=== PATIENT | male | born 1950 | race Caucasian/White ===

== ENCOUNTER 2018-11-28 23:31 | Inpatient (IN) | payer MEDICARE, MEDICAID ==
[~2018-11-28] VITALS: Ht 165.1 cm; Wt 63.5 kg
[2018-11-29] MEDS ORDERED: ACETAMINOPHEN 500MG TABLET PO ONE (00:15)
[2018-11-29 02:35] LABS: BASOPHILS % 0.2 % (0.0-2.0); EOSINOPHILS % 3.8 % (0.0-5.0); HEMATOCRIT. 26.7 % (42.0-52.0); HEMOGLOBIN. 9.1 g/dL (14.0-18.0); LYMPHOCYTES % 8.5 % (20.0-50.0); MEAN PLATELET VOLUME 6.6 fl (7.4-10.4); MONOCYTES % 6.7 % (2.0-8.0); NEUTROPHILS % 80.8 % (40.0-76.0); PLATELET 280 x1000/uL (130-400); RED BLOOD CELL COUNT 3.04 mill/uL (4.7-6.1)
[2018-11-29 02:39] LABS: CHLORIDE 95 mEq/L (98-107)
[2018-11-29 02:52] LABS: PROTHROMBIN TIME 10.6 sec (9.6-11.0)
[2018-11-29] MEDS ORDERED: ONDANSETRON HCL 4MG/2ML INJ IV PRN (03:15)
[2018-11-29] MEDS ORDERED: CLONIDINE 0.1MG TABLET PO PRN (03:15)
[2018-11-29] MEDS ORDERED: LORAZEPAM 2MG/ML CPJ IV PRN (03:15)
[2018-11-29] MEDS ORDERED: DOCUSATE SODIUM 100MG CAPSULE PO PRN (03:15)
[2018-11-29] MEDS ORDERED: MAGNESIUM/ALUMINUM HYDROXIDE/SIMETHICONE 30ML UDC PO PRN (03:15)
[2018-11-29] MEDS ORDERED: ENOXAPARIN 40MG/0.4ML SYR SUBCUT SCH (08:00)
[2018-11-29] MEDS ORDERED: DEXT 5%/0.45% NACL 1000ML 1,000 ML IV SCH (08:00)
[2018-11-29 12:00] VITALS: BP 116/46
[2018-11-29] MEDS ORDERED: NA PHOS,M-B/NA PHOS,DI-BA ENEMA 118ML PR PRN (12:00)
[2018-11-29 12:51] LABS: T4 FREE 0.86 ng/dL (0.76-1.46)
[2018-11-29 13:26] VITALS: BP 106/53
[2018-11-29 16:00] VITALS: BP 123/49
[2018-11-29] MEDS ORDERED: KCL 20MEQ/100ML PREMIX 100 ML IV SCH (16:00)
[2018-11-29 19:36] LABS: *AMPHETAMINES SCREEN URINE NEGATIVE (NEGATIVE); *BARBITURATES SCREEN URINE NEGATIVE (NEGATIVE); *BENZODIAZEPINES SCREEN URINE NEGATIVE (NEGATIVE)
[2018-11-29 19:37] LABS: *COCAINE SCREEN URINE NEGATIVE (NEGATIVE); CANNABINOID URINE SCREEN NEGATIVE (NEGATIVE); METHADONE URINE SCREEN NEGATIVE (NEGATIVE); OPIATES URINE SCREEN NEGATIVE (NEGATIVE); PHENCYCLIDINE URINE SCREEN NEGATIVE (NEGATIVE)
[2018-11-29 20:00] VITALS: BP 94/60
[2018-11-29 20:23] LABS: CREATINE KINASE MB FRACTION 4.7 ng/mL (0.5-3.6)
[2018-11-29 20:31] LABS: VITAMIN B12 SERUM 350 pg/mL (211-911)
[2018-11-29] MEDS: LACTULOSE 20G/30ML UDC PO SCH (21:47)
[2018-11-30] VITALS (77 sets, daily range): BP systolic 56–146; BP diastolic 27–92
[2018-11-30] MEDS ORDERED: MANNITOL 20% (20GM/100ML) BAG 500ML PREMIX IV SCH (01:30)
[2018-11-30] MEDS: DEXT 5%/LACTATED RINGERS 1,000 ML IV SCH ×2 (01:59→22:01)
[2018-11-30] MEDS ORDERED: NICARDIPINE 100 MG in SODIUM CHLORIDE 0.9% 60 ML IV PRN (02:00)
[2018-11-30] MEDS: LEVETIRACETAM 500 MG in SODIUM CHLORIDE 0.9% 100 ML IV SCH ×3 (02:08→18:16)
[2018-11-30 05:50] LABS: BASOPHILS % 0.3 % (0.0-2.0); HEMOGLOBIN. 9.3 g/dL (14.0-18.0); LYMPHOCYTES % 7.3 % (20.0-50.0); MEAN CORPUSCULAR HEMOGLOBIN 30.2 pg (28.0-32.0); MEAN PLATELET VOLUME 7.4 fl (7.4-10.4); MONOCYTES % 6.7 % (2.0-8.0); NEUTROPHILS % 80.7 % (40.0-76.0); PLATELET 274 x1000/uL (130-400); RED BLOOD CELL COUNT 3.07 mill/uL (4.7-6.1); RED CELL DISTRIBUTION WIDTH 15.5 % (11.6-14.6)
[2018-11-30 05:55] LABS: CHLORIDE 98 mEq/L (98-107)
[2018-11-30 06:08] LABS: CREATINE KINASE 139 IU/L (39-308); HDL CHOLESTEROL 43 mg/dL (40-59)
[2018-11-30 06:10] LABS: LDL CHOLESTEROL 70 mg/dL (5-100)
[2018-11-30] MEDS: LACTULOSE 20G/30ML UDC PO SCH (09:00)
[2018-11-30] MEDS ORDERED: DOBUTAMINE 250MG PREMIX 250 ML IV SCH (10:15)
[2018-11-30] MEDS ORDERED: MAGNESIUM 1 G PREMIX 100 ML IV NR (10:15)
[2018-11-30] MEDS: HYDROMORPHONE HCL/PF 2MG/ML CPJ IV PRN (11:01)
[2018-11-30] MEDS ORDERED: DOBUTAMINE 250MG PREMIX 250 ML IV PRN (11:12)
[2018-11-30] MEDS: HYDROCODONE/ACETAMINOPHEN 5/325MG TABLET PO PRN (15:02)
[2018-12-01] VITALS (77 sets, daily range): BP systolic 91–149; BP diastolic 33–97
[2018-12-01] MEDS: LEVETIRACETAM 500 MG in SODIUM CHLORIDE 0.9% 100 ML IV SCH ×3 (01:33→18:07)
[2018-12-01] MEDS: HYDROMORPHONE HCL/PF 2MG/ML CPJ IV PRN (01:46)
[2018-12-01 05:59] LABS: BASOPHILS % 0.4 % (0.0-2.0); EOSINOPHILS % 5.5 % (0.0-5.0); HEMATOCRIT. 28.7 % (42.0-52.0); HEMOGLOBIN. 9.8 g/dL (14.0-18.0); LYMPHOCYTES % 8.2 % (20.0-50.0); MEAN CORPUSCULAR HEMOGLOBIN 30.1 pg (28.0-32.0); MEAN CORPUSCULAR VOLUME 88.4 fL (80.0-94.0); MEAN PLATELET VOLUME 7.2 fl (7.4-10.4); MONOCYTES % 8.8 % (2.0-8.0); NEUTROPHILS % 77.1 % (40.0-76.0); PLATELET 319 x1000/uL (130-400); RED BLOOD CELL COUNT 3.25 mill/uL (4.7-6.1); RED CELL DISTRIBUTION WIDTH 15.3 % (11.6-14.6)
[2018-12-01 06:13] LABS: CHLORIDE 102 mEq/L (98-107)
[2018-12-01] MEDS ORDERED: POVIDONE-IODINE OINT 28.4GM TOP ONE (08:06)
[2018-12-01] MEDS ORDERED: BACITRACIN 15GM TUBE TOP ONE (08:07)
[2018-12-01] MEDS ORDERED: THROMBIN (BOVINE) 5000 UNITS/VIAL TOP ONE ×4 (08:07→08:52)
[2018-12-01] MEDS ORDERED: LIDOCAINE HCL/EPINEPHRINE 1%-EPI 1:100,000 20 ML VIAL ONE ×2 (08:08→08:52)
[2018-12-01] MEDS ORDERED: BACITRACIN 50,000 UNITS/VIAL ONE ×2 (08:08→08:52)
[2018-12-01] MEDS ORDERED: NORMAL SALINE 0.9% 10 ML SYR ONE (08:51)
[2018-12-01] MEDS ORDERED: LACTATED RINGERS 3,000 ML IV ONE (08:52)
[2018-12-01] MEDS: LACTULOSE 20G/30ML UDC PO SCH (09:00)
[2018-12-01] MEDS ORDERED: FENTANYL CITRATE/PF 50MCG/ML 2ML VIAL ONE (09:22)
[2018-12-01] MEDS ORDERED: ROCURONIUM BROMIDE 10MG/ML VIAL 5ML IV ONE (09:23)
[2018-12-01] MEDS ORDERED: PROPOFOL 200MG/20ML VIAL IV ONE (09:23)
[2018-12-01] MEDS ORDERED: GLYCOPYRROLATE 0.2 MG/ML 2ML VIAL ONE ×2 (10:46→11:35)
[2018-12-01] MEDS ORDERED: CLINDAMYCIN 600 MG in DEXTROSE 5% WATER 50 ML IV SCH (11:00)
[2018-12-01] MEDS ORDERED: SODIUM CHLORIDE 0.9% 10ML VIAL ONE (11:05)
[2018-12-01] MEDS ORDERED: EPHEDRINE SULFATE 50MG/ML VIAL ONE (11:05)
[2018-12-01] MEDS ORDERED: NITROGLYCERIN 50MG PREMIX 0 ML IV ONE (11:13)
[2018-12-01] MEDS ORDERED: NEOSTIGMINE METHYLSULFATE 1MG/ML 10 ML VIAL ONE (11:35)
[2018-12-01] MEDS: CLINDAMYCIN 600MG PREMIX 50 ML IV SCH ×2 (14:57→21:34)
[2018-12-01] MEDS: MORPHINE SULFATE 4 MG/ML CPJ (NOT FOR IM USE) IV PRN ×2 (16:02→19:47)
[2018-12-01] MEDS ORDERED: IPRATROPIUM/ALBUTEROL 0.5-3(2.5)MG/3ML NEB HHN SCH (16:30)
[2018-12-01] MEDS: ACETYLCYSTEINE 100MG/ML 10% VIAL 4ML INH SCH (17:17)
[2018-12-01] MEDS: IPRATROPIUM/ALBUTEROL 0.5-3(2.5)MG/3ML NEB HHN SCH ×2 (17:17→20:03)
[2018-12-01] MEDS: DEXT 5%/LACTATED RINGERS 1,000 ML IV SCH (18:07)
[2018-12-02] VITALS (47 sets, daily range): BP systolic 81–167; BP diastolic 28–105
[2018-12-02] MEDS: MORPHINE SULFATE 4 MG/ML CPJ (NOT FOR IM USE) IV PRN ×3 (00:06→17:40)
[2018-12-02] MEDS: ACETYLCYSTEINE 100MG/ML 10% VIAL 4ML INH SCH ×2 (00:09→08:25)
[2018-12-02] MEDS: IPRATROPIUM/ALBUTEROL 0.5-3(2.5)MG/3ML NEB HHN SCH ×5 (00:09→21:12)
[2018-12-02] MEDS: LEVETIRACETAM 500 MG in SODIUM CHLORIDE 0.9% 100 ML IV SCH ×3 (01:52→18:34)
[2018-12-02 05:29] LABS: BASOPHILS % 0.2 % (0.0-2.0); CHLORIDE 100 mEq/L (98-107); EOSINOPHILS % 6.2 % (0.0-5.0); HEMATOCRIT. 29.1 % (42.0-52.0); HEMOGLOBIN. 9.6 g/dL (14.0-18.0); LYMPHOCYTES % 10.1 % (20.0-50.0); MEAN CORPUSCULAR HEMOGLOBIN 29.3 pg (28.0-32.0); MEAN CORPUSCULAR VOLUME 88.6 fL (80.0-94.0); MEAN PLATELET VOLUME 7.1 fl (7.4-10.4); NEUTROPHILS % 75.5 % (40.0-76.0); PLATELET 317 x1000/uL (130-400); RED BLOOD CELL COUNT 3.28 mill/uL (4.7-6.1); RED CELL DISTRIBUTION WIDTH 15.7 % (11.6-14.6)
[2018-12-02] MEDS: CLINDAMYCIN 600MG PREMIX 50 ML IV SCH ×2 (05:46→15:02)
[2018-12-02] MEDS: LACTULOSE 20G/30ML UDC PO SCH (09:00)
[2018-12-02] MEDS: DEXT 5%/LACTATED RINGERS 1,000 ML IV SCH (15:03)
[2018-12-03] VITALS (74 sets, daily range): BP systolic 82–150; BP diastolic 42–109
[2018-12-03] MEDS: ACETYLCYSTEINE 100MG/ML 10% VIAL 4ML INH SCH ×4 (00:06→14:00)
[2018-12-03] MEDS: IPRATROPIUM/ALBUTEROL 0.5-3(2.5)MG/3ML NEB HHN SCH ×7 (00:22→20:53)
[2018-12-03] MEDS: LEVETIRACETAM 500 MG in SODIUM CHLORIDE 0.9% 100 ML IV SCH ×3 (01:01→18:47)
[2018-12-03 05:35] LABS: BASOPHILS % 0.1 % (0.0-2.0); EOSINOPHILS % 4.9 % (0.0-5.0); HEMATOCRIT. 29.7 % (42.0-52.0); HEMOGLOBIN. 10.1 g/dL (14.0-18.0); LYMPHOCYTES % 7.3 % (20.0-50.0); MEAN CORPUSCULAR VOLUME 87.8 fL (80.0-94.0); MONOCYTES % 8.9 % (2.0-8.0); NEUTROPHILS % 78.8 % (40.0-76.0); PLATELET 367 x1000/uL (130-400); RED BLOOD CELL COUNT 3.38 mill/uL (4.7-6.1); RED CELL DISTRIBUTION WIDTH 15.1 % (11.6-14.6)
[2018-12-03 05:52] LABS: CHLORIDE 96 mEq/L (98-107)
[2018-12-03] MEDS: MORPHINE SULFATE 4 MG/ML CPJ (NOT FOR IM USE) IV PRN ×2 (08:34→20:50)
[2018-12-03] MEDS: LACTULOSE 20G/30ML UDC PO SCH (08:35)
[2018-12-03] MEDS: DEXT 5%/LACTATED RINGERS 1,000 ML IV SCH (09:58)
[2018-12-04] VITALS (37 sets, daily range): BP systolic 84–155; BP diastolic 31–95
[2018-12-04] MEDS: IPRATROPIUM/ALBUTEROL 0.5-3(2.5)MG/3ML NEB HHN SCH ×6 (00:06→20:16)
[2018-12-04] MEDS: ACETYLCYSTEINE 100MG/ML 10% VIAL 4ML INH SCH ×2 (00:06→07:53)
[2018-12-04] MEDS: LEVETIRACETAM 500 MG in SODIUM CHLORIDE 0.9% 100 ML IV SCH ×3 (01:05→17:41)
[2018-12-04] MEDS: HYDROCODONE/ACETAMINOPHEN 5/325MG TABLET PO PRN (01:41)
[2018-12-04 05:35] LABS: BASOPHILS % 0.2 % (0.0-2.0); EOSINOPHILS % 3.8 % (0.0-5.0); HEMATOCRIT. 30.2 % (42.0-52.0); HEMOGLOBIN. 10.1 g/dL (14.0-18.0); LYMPHOCYTES % 9.8 % (20.0-50.0); MEAN CORPUSCULAR HEMOGLOBIN 29.6 pg (28.0-32.0); MEAN CORPUSCULAR VOLUME 88.3 fL (80.0-94.0); MEAN PLATELET VOLUME 7.2 fl (7.4-10.4); MONOCYTES % 11.6 % (2.0-8.0); NEUTROPHILS % 74.6 % (40.0-76.0); PLATELET 394 x1000/uL (130-400); RED BLOOD CELL COUNT 3.42 mill/uL (4.7-6.1); RED CELL DISTRIBUTION WIDTH 15.2 % (11.6-14.6)
[2018-12-04] MEDS: DEXT 5%/LACTATED RINGERS 1,000 ML IV SCH (05:56)
[2018-12-04 06:11] LABS: CHLORIDE 95 mEq/L (98-107)
[2018-12-04] MEDS: LACTULOSE 20G/30ML UDC PO SCH (09:00)
[2018-12-04] MEDS ORDERED: DEXTROSE 50% WATER 50ML SYRINGE IV PRN (09:45)
[2018-12-04] MEDS: BLOOD SUGAR DIAGNOSTIC STRIP TEST SCH ×3 (11:30→21:00)
[2018-12-04] MEDS: INSULIN LISPRO 100 UNITS/ML SUBCUT SCH ×3 (12:00→21:00)
[2018-12-04] MEDS: HYDROCODONE/APAP 7.5/325MG 1 TAB TABLET PO PRN (15:14)
[2018-12-05] VITALS (17 sets, daily range): BP systolic 84–152; BP diastolic 39–85
[2018-12-05] MEDS: IPRATROPIUM/ALBUTEROL 0.5-3(2.5)MG/3ML NEB HHN SCH ×7 (00:09→22:25)
[2018-12-05] MEDS: LEVETIRACETAM 500 MG in SODIUM CHLORIDE 0.9% 100 ML IV SCH ×3 (03:21→17:05)
[2018-12-05] MEDS: HYDROCODONE/APAP 7.5/325MG 1 TAB TABLET PO PRN ×2 (03:24→14:03)
[2018-12-05] MEDS: BLOOD SUGAR DIAGNOSTIC STRIP TEST SCH ×4 (06:30→21:33)
[2018-12-05] MEDS: INSULIN LISPRO 100 UNITS/ML SUBCUT SCH ×4 (07:00→21:00)
[2018-12-05] MEDS: ACETYLCYSTEINE 100MG/ML 10% VIAL 4ML INH SCH ×2 (07:47→14:31)
[2018-12-05] MEDS: LACTULOSE 20G/30ML UDC PO SCH (09:00)
[2018-12-05] MEDS: DEXT 5%/LACTATED RINGERS 1,000 ML IV SCH (09:40)
[2018-12-05] MEDS: MORPHINE SULFATE 4 MG/ML CPJ (NOT FOR IM USE) IV PRN (17:06)
[2018-12-06] VITALS (7 sets, daily range): BP systolic 90–123; BP diastolic 52–64
[2018-12-06] MEDS: LEVETIRACETAM 500 MG in SODIUM CHLORIDE 0.9% 100 ML IV SCH ×3 (01:09→20:12)
[2018-12-06] MEDS: HYDROCODONE/APAP 7.5/325MG 1 TAB TABLET PO PRN (01:16)
[2018-12-06] MEDS: BLOOD SUGAR DIAGNOSTIC STRIP TEST SCH ×4 (07:36→21:00)
[2018-12-06] MEDS: INSULIN LISPRO 100 UNITS/ML SUBCUT SCH ×4 (07:50→21:28)
[2018-12-06] MEDS: IPRATROPIUM/ALBUTEROL 0.5-3(2.5)MG/3ML NEB HHN SCH ×3 (08:31→17:19)
[2018-12-06] MEDS: ACETYLCYSTEINE 100MG/ML 10% VIAL 4ML INH SCH ×2 (08:31→17:19)
[2018-12-06] MEDS: LACTULOSE 20G/30ML UDC PO SCH (09:00)
[2018-12-06] MEDS ORDERED: BACITRACIN 15GM TUBE TOP ONE (09:55)
[2018-12-06] MEDS ORDERED: BACITRACIN 50,000 UNITS/VIAL ONE (09:56)
[2018-12-06] MEDS ORDERED: VANCOMYCIN HCL 500 MG/VIAL ONE (09:56)
[2018-12-06] MEDS ORDERED: MIDAZOLAM HCL 2 MG/2 ML VIAL ONE (10:42)
[2018-12-06] MEDS ORDERED: FENTANYL CITRATE/PF 50MCG/ML 2ML VIAL ONE (10:42)
[2018-12-06] MEDS ORDERED: ROCURONIUM BROMIDE 10MG/ML VIAL 5ML IV ONE (10:43)
[2018-12-06] MEDS ORDERED: LIDOCAINE HCL 1% 20ML VIAL (Pyxis) INJ ONE (10:43)
[2018-12-06] MEDS ORDERED: PROPOFOL 200MG/20ML VIAL IV ONE (10:43)
[2018-12-06] MEDS ORDERED: PHENYLEPHRINE HCL 10 MG/ML 1ML (IV VIAL) IV ONE (10:48)
[2018-12-06] MEDS ORDERED: EPHEDRINE SULFATE 50MG/ML VIAL ONE (10:48)
[2018-12-06] MEDS ORDERED: SODIUM CHLORIDE 0.9% 10ML VIAL ONE (10:51)
[2018-12-06] MEDS ORDERED: GLYCOPYRROLATE 0.2 MG/ML 2ML VIAL ONE ×2 (11:44→12:49)
[2018-12-06] MEDS ORDERED: LEVOFLOXACIN 500MG PREMIX 100 ML IV ONE (11:59)
[2018-12-06] MEDS ORDERED: DEXAMETHASONE 4MG/ML 1ML VIAL ONE (12:13)
[2018-12-06] MEDS ORDERED: NEOSTIGMINE METHYLSULFATE 1MG/ML 10 ML VIAL ONE (12:49)
[2018-12-06] MEDS: HYDROMORPHONE HCL/PF 2MG/ML CPJ IV PRN ×2 (13:40→13:56)
[2018-12-06] MEDS: CLINDAMYCIN 600 MG in DEXTROSE 5% WATER 50 ML IV SCH (16:10)
[2018-12-07 00:05] VITALS: BP 105/57
[2018-12-07] MEDS: CLINDAMYCIN 600 MG in DEXTROSE 5% WATER 50 ML IV SCH (00:32)
[2018-12-07] MEDS: LEVETIRACETAM 500 MG in SODIUM CHLORIDE 0.9% 100 ML IV SCH ×3 (03:03→18:33)
[2018-12-07 04:00] VITALS: BP 114/67
[2018-12-07 06:11] LABS: HEMATOCRIT. 25.4 % (42.0-52.0); HEMOGLOBIN. 8.7 g/dL (14.0-18.0); MEAN CORPUSCULAR HEMOGLOBIN 29.5 pg (28.0-32.0); MEAN CORPUSCULAR VOLUME 86.6 fL (80.0-94.0); MEAN PLATELET VOLUME 7.1 fl (7.4-10.4); PLATELET 441 x1000/uL (130-400); RED BLOOD CELL COUNT 2.94 mill/uL (4.7-6.1); RED CELL DISTRIBUTION WIDTH 14.7 % (11.6-14.6)
[2018-12-07] MEDS: BLOOD SUGAR DIAGNOSTIC STRIP TEST SCH ×4 (06:23→20:32)
[2018-12-07] MEDS: INSULIN LISPRO 100 UNITS/ML SUBCUT SCH ×4 (06:23→20:32)
[2018-12-07 07:37] LABS: CHLORIDE 90 mEq/L (98-107)
[2018-12-07 08:00] VITALS: BP 110/59
[2018-12-07] MEDS: LACTULOSE 20G/30ML UDC PO SCH (09:39)
[2018-12-07] MEDS: DEXT 5%/LACTATED RINGERS 1,000 ML IV SCH (09:40)
[2018-12-07] MEDS: HYDROCODONE/APAP 7.5/325MG 1 TAB TABLET PO PRN (09:41)
[2018-12-07] MEDS: IPRATROPIUM/ALBUTEROL 0.5-3(2.5)MG/3ML NEB HHN SCH ×4 (10:05→20:20)
[2018-12-07 11:47] LABS: PLATELET ESTIMATE SLIGHTLY INCREASED
[2018-12-07 12:00] VITALS: BP 120/55
[2018-12-07] MEDS: ENOXAPARIN 40MG/0.4ML SYR SUBCUT SCH (12:23)
[2018-12-07 16:00] VITALS: BP 99/58
[2018-12-07 19:39] VITALS: BP 94/51
[2018-12-08] VITALS (8 sets, daily range): BP systolic 88–118; BP diastolic 40–66
[2018-12-08] MEDS: IPRATROPIUM/ALBUTEROL 0.5-3(2.5)MG/3ML NEB HHN SCH ×6 (00:29→21:33)
[2018-12-08] MEDS: ACETAMINOPHEN 325MG TABLET PO PRN ×3 (00:55→17:06)
[2018-12-08] MEDS: LEVETIRACETAM 500 MG in SODIUM CHLORIDE 0.9% 100 ML IV SCH ×3 (05:23→18:41)
[2018-12-08 06:35] LABS: BASOPHILS % 0.2 % (0.0-2.0); EOSINOPHILS % 1.5 % (0.0-5.0); HEMATOCRIT. 26.6 % (42.0-52.0); HEMOGLOBIN. 8.9 g/dL (14.0-18.0); LYMPHOCYTES % 11.5 % (20.0-50.0); MEAN CORPUSCULAR HEMOGLOBIN 29.3 pg (28.0-32.0); MEAN CORPUSCULAR VOLUME 87.2 fL (80.0-94.0); MEAN PLATELET VOLUME 7.2 fl (7.4-10.4); MONOCYTES % 10.7 % (2.0-8.0); NEUTROPHILS % 76.1 % (40.0-76.0); PLATELET 462 x1000/uL (130-400); RED BLOOD CELL COUNT 3.05 mill/uL (4.7-6.1)
[2018-12-08] MEDS: BLOOD SUGAR DIAGNOSTIC STRIP TEST SCH ×4 (06:47→21:27)
[2018-12-08] MEDS: INSULIN LISPRO 100 UNITS/ML SUBCUT SCH ×4 (06:47→21:00)
[2018-12-08 07:24] LABS: CHLORIDE 94 mEq/L (98-107)
[2018-12-08] MEDS: LACTULOSE 20G/30ML UDC PO SCH (10:24)
[2018-12-08] MEDS: HYDROCODONE/APAP 7.5/325MG 1 TAB TABLET PO PRN ×2 (10:25→21:28)
[2018-12-08] MEDS: ENOXAPARIN 40MG/0.4ML SYR SUBCUT SCH (12:00)
[2018-12-08] MEDS ORDERED: POTASSIUM CHLORIDE 20MEQ/PACKET PO NR (15:30)
[2018-12-08] MEDS: DEXT 5%/LACTATED RINGERS 1,000 ML IV SCH (21:27)
[2018-12-09] VITALS (7 sets, daily range): BP systolic 90–149; BP diastolic 46–72
[2018-12-09] MEDS: IPRATROPIUM/ALBUTEROL 0.5-3(2.5)MG/3ML NEB HHN SCH ×6 (00:53→21:13)
[2018-12-09] MEDS: LEVETIRACETAM 500 MG in SODIUM CHLORIDE 0.9% 100 ML IV SCH ×3 (04:10→17:38)
[2018-12-09] MEDS: DEXT 5%/LACTATED RINGERS 1,000 ML IV SCH ×3 (06:18→09:13)
[2018-12-09 06:38] LABS: BASOPHILS % 0.4 % (0.0-2.0); EOSINOPHILS % 4.5 % (0.0-5.0); HEMATOCRIT. 24.2 % (42.0-52.0); HEMOGLOBIN. 8.2 g/dL (14.0-18.0); LYMPHOCYTES % 12.9 % (20.0-50.0); MEAN CORPUSCULAR HEMOGLOBIN 29.4 pg (28.0-32.0); MEAN CORPUSCULAR VOLUME 86.8 fL (80.0-94.0); MEAN PLATELET VOLUME 6.9 fl (7.4-10.4); MONOCYTES % 12.2 % (2.0-8.0); PLATELET 452 x1000/uL (130-400); RED BLOOD CELL COUNT 2.79 mill/uL (4.7-6.1)
[2018-12-09 06:43] LABS: CHLORIDE 99 mEq/L (98-107)
[2018-12-09] MEDS: INSULIN LISPRO 100 UNITS/ML SUBCUT SCH ×4 (06:48→21:00)
[2018-12-09] MEDS: BLOOD SUGAR DIAGNOSTIC STRIP TEST SCH ×4 (06:48→21:00)
[2018-12-09] MEDS: LACTULOSE 20G/30ML UDC PO SCH (09:11)
[2018-12-09] MEDS: LEVOFLOXACIN 250MG TABLET PO SCH (11:07)
[2018-12-09] MEDS: ENOXAPARIN 40MG/0.4ML SYR SUBCUT SCH (12:22)
[2018-12-10] VITALS: BP 123/56
[2018-12-10] MEDS: IPRATROPIUM/ALBUTEROL 0.5-3(2.5)MG/3ML NEB HHN SCH ×6 (00:55→21:32)
[2018-12-10 04:00] VITALS: BP 124/56
[2018-12-10] MEDS: INSULIN LISPRO 100 UNITS/ML SUBCUT SCH ×4 (07:01→21:00)
[2018-12-10] MEDS: BLOOD SUGAR DIAGNOSTIC STRIP TEST SCH ×4 (07:01→21:00)
[2018-12-10] MEDS: LEVETIRACETAM 500 MG in SODIUM CHLORIDE 0.9% 100 ML IV SCH ×3 (07:01→18:00)
[2018-12-10 08:00] VITALS: BP 108/54
[2018-12-10] MEDS: LACTULOSE 20G/30ML UDC PO SCH (08:37)
[2018-12-10 12:00] VITALS: BP 125/68
[2018-12-10] MEDS: ENOXAPARIN 40MG/0.4ML SYR SUBCUT SCH (12:48)
[2018-12-10] MEDS: LEVOFLOXACIN 250MG TABLET PO SCH (12:48)
[2018-12-10] MEDS: HYDROCODONE/APAP 7.5/325MG 1 TAB TABLET PO PRN (12:55)
[2018-12-10 16:00] VITALS: BP 112/56
[2018-12-10 17:54] LABS: TOTAL IRON BINDING CAPACITY 204 ug/dL (250-450)
[2018-12-10 18:12] LABS: FERRITIN 413 ng/mL (22-322)
[2018-12-10 18:20] LABS: VITAMIN B12 SERUM 406 pg/mL (211-911)
[2018-12-10 20:07] VITALS: BP 115/70
[2018-12-11] VITALS (7 sets, daily range): BP systolic 90–127; BP diastolic 49–75
[2018-12-11] MEDS: IPRATROPIUM/ALBUTEROL 0.5-3(2.5)MG/3ML NEB HHN SCH ×6 (01:14→20:08)
[2018-12-11] MEDS: DEXT 5%/LACTATED RINGERS 1,000 ML IV SCH (01:58)
[2018-12-11] MEDS: LEVETIRACETAM 500 MG in SODIUM CHLORIDE 0.9% 100 ML IV SCH ×3 (01:58→18:02)
[2018-12-11 05:47] LABS: BASOPHILS % 0.2 % (0.0-2.0); EOSINOPHILS % 7.4 % (0.0-5.0); HEMATOCRIT. 23.3 % (42.0-52.0); HEMOGLOBIN. 7.9 g/dL (14.0-18.0); LYMPHOCYTES % 11.7 % (20.0-50.0); MEAN CORPUSCULAR HEMOGLOBIN 29.4 pg (28.0-32.0); MEAN CORPUSCULAR VOLUME 85.9 fL (80.0-94.0); MEAN PLATELET VOLUME 6.9 fl (7.4-10.4); MONOCYTES % 9.1 % (2.0-8.0); NEUTROPHILS % 71.6 % (40.0-76.0); PLATELET 483 x1000/uL (130-400); RED BLOOD CELL COUNT 2.71 mill/uL (4.7-6.1); RED CELL DISTRIBUTION WIDTH 14.6 % (11.6-14.6)
[2018-12-11 06:01] LABS: CHLORIDE 89 mEq/L (98-107)
[2018-12-11] MEDS: BLOOD SUGAR DIAGNOSTIC STRIP TEST SCH ×4 (06:23→21:00)
[2018-12-11] MEDS: INSULIN LISPRO 100 UNITS/ML SUBCUT SCH ×4 (07:50→21:00)
[2018-12-11] MEDS: SODIUM CHLORIDE 0.9% 1,000 ML IV SCH ×2 (08:13→22:09)
[2018-12-11] MEDS: LACTULOSE 20G/30ML UDC PO SCH (08:14)
[2018-12-11] MEDS: LEVOFLOXACIN 250MG TABLET PO SCH (11:47)
[2018-12-12] MEDS: IPRATROPIUM/ALBUTEROL 0.5-3(2.5)MG/3ML NEB HHN SCH ×5 (00:32→20:56)
[2018-12-12] MEDS: LEVETIRACETAM 500 MG in SODIUM CHLORIDE 0.9% 100 ML IV SCH ×2 (02:58→10:17)
[2018-12-12 04:00] VITALS: BP 104/53
[2018-12-12] MEDS: BLOOD SUGAR DIAGNOSTIC STRIP TEST SCH ×4 (07:50→21:39)
[2018-12-12] MEDS: INSULIN LISPRO 100 UNITS/ML SUBCUT SCH ×4 (07:50→21:00)
[2018-12-12 08:00] VITALS: BP 119/56
[2018-12-12] MEDS: LACTULOSE 20G/30ML UDC PO SCH (08:28)
[2018-12-12 10:55] LABS: HEMATOCRIT 25.5 % (42.0-52.0); HEMOGLOBIN 8.7 g/dL (14.0-18.0); MEAN CORPUSCULAR HEMOGLOBIN 29.4 pg (28.0-32.0); MEAN CORPUSCULAR VOLUME 86.2 fL (80.0-94.0); PLATELET 557 x1000/uL (130-400); RED BLOOD CELL COUNT 2.96 mill/uL (4.7-6.1); RED CELL DISTRIBUTION WIDTH 14.9 % (11.6-14.6)
[2018-12-12 11:42] LABS: CHLORIDE 90 mEq/L (98-107)
[2018-12-12] MEDS: HYDROCODONE/APAP 7.5/325MG 1 TAB TABLET PO PRN (11:57)
[2018-12-12] MEDS: LEVOFLOXACIN 250MG TABLET PO SCH (11:58)
[2018-12-12 12:00] VITALS: BP 112/73
[2018-12-12 16:00] VITALS: BP 104/51
[2018-12-12 20:00] VITALS: BP 99/56
[2018-12-12] MEDS: LEVETIRACETAM 250MG TABLET PO SCH (21:40)
[2018-12-12] MEDS: DEXT 5%/LACTATED RINGERS 1,000 ML IV SCH (21:41)
[2018-12-12 23:50] VITALS: BP 98/51
[2018-12-13] MEDS: IPRATROPIUM/ALBUTEROL 0.5-3(2.5)MG/3ML NEB HHN SCH ×5 (00:42→20:39)
[2018-12-13 04:00] VITALS: BP 94/48
[2018-12-13 04:02] VITALS: BP 94/48
[2018-12-13] MEDS: BLOOD SUGAR DIAGNOSTIC STRIP TEST SCH ×4 (07:47→20:40)
[2018-12-13] MEDS: INSULIN LISPRO 100 UNITS/ML SUBCUT SCH ×4 (07:47→20:41)
[2018-12-13 08:47] VITALS: BP 101/59
[2018-12-13] MEDS: LACTULOSE 20G/30ML UDC PO SCH (09:00)
[2018-12-13] MEDS: LEVETIRACETAM 250MG TABLET PO SCH ×2 (09:37→20:40)
[2018-12-13] MEDS: SODIUM CHLORIDE 0.9% 1,000 ML IV SCH ×2 (10:17→22:46)
[2018-12-13] MEDS: LEVOFLOXACIN 250MG TABLET PO SCH (10:17)
[2018-12-13 11:00] LABS: CHLORIDE 94 mEq/L (98-107)
[2018-12-13 12:54] VITALS: BP 124/73
[2018-12-13 16:27] VITALS: BP 131/69
[2018-12-13 20:00] VITALS: BP 131/71
[2018-12-14] VITALS (8 sets, daily range): BP systolic 99–159; BP diastolic 46–79
[2018-12-14] MEDS: IPRATROPIUM/ALBUTEROL 0.5-3(2.5)MG/3ML NEB HHN SCH ×5 (01:09→16:45)
[2018-12-14] MEDS: BLOOD SUGAR DIAGNOSTIC STRIP TEST SCH ×3 (06:28→17:24)
[2018-12-14] MEDS: INSULIN LISPRO 100 UNITS/ML SUBCUT SCH ×3 (07:50→17:24)
[2018-12-14 09:00] LABS: CHLORIDE 90 mEq/L (98-107)
[2018-12-14] MEDS: LACTULOSE 20G/30ML UDC PO SCH (09:00)
[2018-12-14] MEDS: LEVETIRACETAM 250MG TABLET PO SCH (09:23)
[2018-12-14] MEDS: LEVOFLOXACIN 250MG TABLET PO SCH (10:58)
[2018-12-14] MEDS: SODIUM CHLORIDE 0.9% 1,000 ML IV SCH (12:22)
== END 2018-12-14 20:55 | disposition home health service (06) | DRG 21 ==
LOC: ER 23:31 → SUPCPDRO 11-29 03:13 → 5WST 11-29 04:06 → EDBEDREQSVC 11-29 04:10 → EDBEDREQ 11-29 04:10 → EDBEDREQTM 11-29 04:10 → ENRESERV 11-29 10:14 → 5WST 11-29 20:22 → MICUSO 11-30 00:37 → MICUNO 12-01 06:40 → MICUSO 12-03 07:00 → 6EST 12-05 15:30 → 6WST 12-06 17:58
PROVIDERS: ADMIT Hospitalist; ATTEND Hospitalist
PROC: 4A00X4Z Measurement of Central Nervous Electrical Activity, External Approach (ICD-10-PCS; 2018-11-30)
PROC: 02HV33Z Insertion of Infusion Device into Superior Vena Cava, Percutaneous Approach (ICD-10-PCS; 2018-11-30)
PROC: B548ZZA Ultrasonography of Superior Vena Cava, Guidance (ICD-10-PCS; 2018-11-30)
PROC: 00C40ZZ Extirpation of Matter from Intracranial Subdural Space, Open Approach (ICD-10-PCS; principal; 2018-12-06)
PROC: 0SRR0JZ Replacement of Right Hip Joint, Femoral Surface with Synthetic Substitute, Open Approach (ICD-10-PCS; 2018-12-06)
PROC: 4A103BD Monitoring of Intracranial Pressure, Percutaneous Approach (ICD-10-PCS; 2018-12-06)
PROC: 00H032Z Insertion of Monitoring Device into Brain, Percutaneous Approach (ICD-10-PCS; 2018-12-06)
PROC: 00U207Z Supplement Dura Mater with Autologous Tissue Substitute, Open Approach (ICD-10-PCS; 2018-12-06)
DX: I62.01 Nontraumatic acute subdural hemorrhage (principal); J96.00 Acute respiratory failure, unspecified whether with hypoxia or hypercapnia; E43 Unspecified severe protein-calorie malnutrition; G93.40 Encephalopathy, unspecified; J18.9 Pneumonia, unspecified organism; S72.001A Fracture of unspecified part of neck of right femur, initial encounter for closed fracture; D63.8 Anemia in other chronic diseases classified elsewhere; E11.9 Type 2 diabetes mellitus without complications; N39.0 Urinary tract infection, site not specified; E87.1 Hypo-osmolality and hyponatremia; R00.1 Bradycardia, unspecified; I10 Essential (primary) hypertension; W01.0XXA Fall on same level from slipping, tripping and stumbling without subsequent striking against object, initial encounter; Y93.89 Activity, other specified; Y92.89 Other specified places as the place of occurrence of the external cause; Y99.8 Other external cause status; Z88.0 Allergy status to penicillin; Z68.23 Body mass index [BMI] 23.0-23.9, adult
CPT/HCPCS: 36415; 36569; 71045; 72170; 73552; 73560; 76937; 80048; 80061; 80305; 82140; 82270; 82550; 82553; 82607; 82728; 82962; 83036; 83540; 83550; 83735; 83880; 84439; 84443; 84484; 85027; 85044; 85379; 86780; 87077; 87186; 88305; 88311; 93005; 93306; 93970; 93971; 94640; 96372; 97116; 97163; 97530; 99285; C1713; C1725; C1758; C1776; C1893; J1100; J1170; J1250; J1650; J1815; J1953; J1956; J2250; J2270; J2370; J2405; J2704; J2710; J3010; J3370; J3475; J3480; J3490; J7030; J7040; J7050; J7060; J7120; J7121; J7608; J7620; A4315

== ENCOUNTER 2022-09-11 11:31 | Inpatient (IN) | payer MEDICARE, MEDICAID ==
[~2022-09-11] VITALS: Ht 167.6 cm; Wt 61.6 kg
[2022-09-11] MEDS ORDERED: SODIUM CHLORIDE 0.9% 1,000 ML IV ONE (12:00)
[2022-09-11 14:18] LABS: CHLORIDE 104 mEq/L (98-107)
[2022-09-11 15:06] LABS: BASOPHILS % 0.4 % (0.0-2.0); EOSINOPHILS % 3.1 % (0.0-5.0); HEMATOCRIT. 33.9 % (42.0-52.0); HEMOGLOBIN. 11.1 g/dL (14.0-18.0); LYMPHOCYTES % 14.2 % (20.0-50.0); MEAN CORPUSCULAR HEMOGLOBIN 28.2 pg (28.0-32.0); MONOCYTES % 10.9 % (2.0-8.0); NEUTROPHILS % 71.4 % (40.0-76.0); PLATELET 302 x1000/uL (130-400); RED BLOOD CELL COUNT 3.95 mill/uL (4.7-6.1)
[2022-09-11] MEDS ORDERED: NITROGLYCERIN 0.4MG TABLET SL SL PRN (15:45)
[2022-09-11] MEDS ORDERED: DOCUSATE SODIUM 100MG CAPSULE PO PRN (15:45)
[2022-09-11] MEDS ORDERED: DEXTROSE 50% WATER 50ML SYRINGE IV PRN (15:45)
[2022-09-11] MEDS ORDERED: KETOROLAC 15MG/ML VIAL IV PRN (15:45)
[2022-09-11] MEDS ORDERED: MAGNESIUM/ALUMINUM HYDROXIDE/SIMETHICONE 30ML UDC PO PRN (15:45)
[2022-09-11] MEDS ORDERED: ONDANSETRON HCL 4MG/2ML INJ IV PRN (15:45)
[2022-09-11] MEDS ORDERED: GUAIFENESIN 200MG/10ML SUGAR FREE UDC PO PRN (15:45)
[2022-09-11] MEDS ORDERED: IPRATROPIUM/ALBUTEROL 0.5-3(2.5)MG/3ML NEB NEB PRN (15:45)
[2022-09-11] MEDS ORDERED: CLONIDINE 0.1MG TABLET PO PRN (15:45)
[2022-09-11] MEDS ORDERED: ACETAMINOPHEN 325MG TABLET PO PRN ×2 (15:45)
[2022-09-11] MEDS: BLOOD SUGAR DIAGNOSTIC STRIP TEST SCH ×3 (16:30→20:56)
[2022-09-11] MEDS: INSULIN LISPRO 100 UNITS/ML SUBCUT SCH ×3 (17:00→20:56)
[2022-09-11] MEDS ORDERED: ALBUTEROL (0.083%) 2.5MG/3ML NEB HHN PRN (17:45)
[2022-09-11] MEDS ORDERED: IPRATROPIUM BROMIDE (0.02%) 0.5MG/2.5ML NEB HHN PRN (17:45)
[2022-09-11] MEDS: ENOXAPARIN 40MG/0.4ML SYR SUBCUT SCH (18:06)
[2022-09-11 18:10] VITALS: BP 114/79
[2022-09-11 18:37] LABS: T4 FREE 1.49 ng/dL (0.76-1.46)
[2022-09-11 18:53] LABS: FOLIC ACID (FOLATE) SERUM 14.3 ng/mL (>5.38)
[2022-09-11 19:30] VITALS: BP 109/71
[2022-09-11 20:00] VITALS: BP 109/71
[2022-09-11] MEDS ORDERED: ZOLPIDEM TARTRATE 5MG TABLET PO PRN (21:00)
[2022-09-11] MEDS: FAMOTIDINE 20MG TABLET PO SCH (21:02)
[2022-09-11] MEDS: ASCORBIC ACID 500 MG TABLET PO SCH (21:02)
[2022-09-12] VITALS: BP 105/71
[2022-09-12 02:56] LABS: CREATINE KINASE MB FRACTION 1.9 ng/mL (0.5-3.6)
[2022-09-12 04:00] VITALS: BP 113/75
[2022-09-12 07:30] LABS: BASOPHILS % 0.5 % (0.0-2.0); EOSINOPHILS % 6.8 % (0.0-5.0); HEMATOCRIT. 30.2 % (42.0-52.0); HEMOGLOBIN. 10.2 g/dL (14.0-18.0); LYMPHOCYTES % 22.9 % (20.0-50.0); MEAN CORPUSCULAR HEMOGLOBIN 28.4 pg (28.0-32.0); MEAN CORPUSCULAR VOLUME 83.9 fL (80.0-94.0); MONOCYTES % 12.1 % (2.0-8.0); NEUTROPHILS % 57.7 % (40.0-76.0); PLATELET 284 x1000/uL (130-400); RED BLOOD CELL COUNT 3.59 mill/uL (4.7-6.1); RED CELL DISTRIBUTION WIDTH 16.8 % (11.6-14.6)
[2022-09-12] MEDS: BLOOD SUGAR DIAGNOSTIC STRIP TEST SCH ×4 (07:40→21:01)
[2022-09-12 08:00] VITALS: BP 114/59
[2022-09-12] MEDS: INSULIN LISPRO 100 UNITS/ML SUBCUT SCH ×4 (08:10→21:00)
[2022-09-12] MEDS: FAMOTIDINE 20MG TABLET PO SCH ×2 (08:32→21:07)
[2022-09-12] MEDS: ASCORBIC ACID 500 MG TABLET PO SCH ×2 (08:32→21:07)
[2022-09-12] MEDS: ZINC SULFATE 220 MG ( 50 ) CAPSULE PO SCH (08:32)
[2022-09-12] MEDS ORDERED: GABA-529 PO (09:05)
[2022-09-12] MEDS ORDERED: RISP05 MT (09:05)
[2022-09-12] MEDS ORDERED: DONE-53 MT (09:05)
[2022-09-12] MEDS ORDERED: LEVO125T8 MT (09:05)
[2022-09-12 11:25] LABS: CHLORIDE 103 mEq/L (98-107)
[2022-09-12 11:45] LABS: CREATINE KINASE 66 IU/L (39-308); CREATINE KINASE MB FRACTION 1.7 ng/mL (0.5-3.6); PHOSPHORUS 2.6 mg/dL (2.5-4.9)
[2022-09-12 12:00] VITALS: BP 113/77
[2022-09-12 16:00] VITALS: BP 116/70
[2022-09-12] MEDS: ENOXAPARIN 40MG/0.4ML SYR SUBCUT SCH (16:12)
[2022-09-12 16:31] LABS: CLARITY URINE CLEAR (CLEAR); COLOR URINE YELLOW (YELLOW); KETONES URINE NEGATIVE (NEGATIVE); LEUKOCYTE ESTERASE URINE NEGATIVE (NEGATIVE); NITRITE URINE NEGATIVE (NEGATIVE); OCCULT BLOOD URINE NEGATIVE (NEGATIVE); PROTEIN URINE NEGATIVE (NEGATIVE); SPECIFIC GRAVITY URINE 1.009 (1.005-1.030); UROBILINOGEN URINE 0.2 E.U./dL (0.2-1.0)
[2022-09-12 18:22] LABS: *AMPHETAMINES SCREEN URINE NEGATIVE (NEGATIVE); *BARBITURATES SCREEN URINE NEGATIVE (NEGATIVE); *BENZODIAZEPINES SCREEN URINE NEGATIVE (NEGATIVE); *COCAINE SCREEN URINE NEGATIVE (NEGATIVE); CANNABINOID URINE SCREEN NEGATIVE (NEGATIVE); METHADONE URINE SCREEN NEGATIVE (NEGATIVE); OPIATES URINE SCREEN NEGATIVE (NEGATIVE); PHENCYCLIDINE URINE SCREEN NEGATIVE (NEGATIVE)
[2022-09-12 20:00] VITALS: BP 102/63
[2022-09-13] VITALS: BP 112/60
[2022-09-13 04:00] VITALS: BP 104/68
[2022-09-13] MEDS: BLOOD SUGAR DIAGNOSTIC STRIP TEST SCH ×2 (07:39→12:04)
[2022-09-13] MEDS: INSULIN LISPRO 100 UNITS/ML SUBCUT SCH ×2 (07:40→12:04)
[2022-09-13 07:51] VITALS: BP 114/69
[2022-09-13] MEDS: ASCORBIC ACID 500 MG TABLET PO SCH (08:28)
[2022-09-13] MEDS: ZINC SULFATE 220 MG ( 50 ) CAPSULE PO SCH (08:28)
[2022-09-13] MEDS: FAMOTIDINE 20MG TABLET PO SCH (08:28)
[2022-09-13 11:51] VITALS: BP 109/68
[2022-09-13 12:10] VITALS: BP 109/68
== END 2022-09-13 18:08 | disposition home or self-care (01) | DRG 52 ==
LOC: ER 13:21 → MICUSO 15:17 → 7WST 17:37
PROVIDERS: ADMIT Internal Medicine; ATTEND Internal Medicine
DX: G93.40 Encephalopathy, unspecified (principal); E44.1 Mild protein-calorie malnutrition; I95.9 Hypotension, unspecified; F03.90 Unspecified dementia, unspecified severity, without behavioral disturbance, psychotic disturbance, mood disturbance, and anxiety; R55 Syncope and collapse; D63.8 Anemia in other chronic diseases classified elsewhere; Z68.21 Body mass index [BMI] 21.0-21.9, adult; E11.9 Type 2 diabetes mellitus without complications; I10 Essential (primary) hypertension; E07.9 Disorder of thyroid, unspecified; Z99.3 Dependence on wheelchair
CPT/HCPCS: 36415; 71045; 80053; 80061; 80305; 81003; 82550; 82553; 82607; 82746; 82962; 83036; 83540; 83550; 83605; 83735; 83880; 84100; 84439; 84443; 84484; 85025; 85379; 87077; 87186; 93005; 93306; 93970; 97162; 97166; 99285; A6261; J1650; J7030; A4315